=== PATIENT | female | born 1940 | race Caucasian/White ===

== ENCOUNTER → 2019-02-07 | Outpatient (CLI) | payer OTHER ==
[~2019-02-07] VITALS: Ht 167.6 cm; Wt 67.1 kg
[~2019-02-07] MED LIST: AMITIZA 24 MCG24 MCG PO; ASPIR 8181 MG PO; CENTRUM SILVER1 EAC4 PO; COMBIVENT INH; FLEXERIL PO; FLONASE 0.05%50 MCG NASAL; LIPITOR 10 MG10 M1 PO; PROTONIX40 M1 PO; TOPROL XL25 MG PO; TRAMADOL 50 MG50 MG PO; VITAMIN D-32000 UNIT PO
--- NOTE | 2019-02-08 17:06 | PATH ---
[facility] [place] [address] PATHOLOGY RPT PROCEDURE Name: NADEGE WHITTEN Room #: REG [facility] M..#: [id number] ������������������ Admission: 02/07/19 ������������������ Date of : 40 Discharge: Report #: [id number] Path Case #: [id number] [facility] Accession Number: [id number] . 01 Material submitted: . PART A: salivary gland - BX POLYP AT SPLENIC FLEXURE PART B: colon - BX POLYP AT MID ASCENDING COLON. Modifiers: mid, ascending PART C: hepatic flexure - BX POLYP AT HEPATIC FLEXURE PART D: colon - POLYP AT MID TRANSVERSE COLON. Modifiers: mid, transverse . 01 Clinical history: . Pre-OP DX: Hx polyps Post-OP DX: Colon polyps, diverticulosis, hemorrhoids . 02 Diagnosis: A. Colonic mucosa, "polyp at splenic flexure": - Tubular adenoma. - There is no evidence of high-grade dysplasia or malignancy. . B. Colonic mucosa, "polyp at mid ascending colon": - Tubular adenoma. - There is no evidence of high-grade dysplasia or malignancy. . C. Colonic mucosa, "biopsy polyp at hepatic flexure": - Fragments of tubular adenoma. - There is no evidence of high-grade dysplasia or malignancy. . D. Colonic mucosa, "polyp at mid transverse colon": - Fragments of tubular adenoma. - There is no evidence of high-grade dysplasia or malignancy. . (SHA:manuel; 02/08/2019) KINJAL/02/08/2019 . 02 Electronically signed: . Rj Arias MD, Pathologist NPI- [id number] . 01 Gross description: . A. Received in formalin labeled "ZariNadege, LI polyp at splenic flexure," is a single segment of maya soft tissue measuring 0.5 cm in maximum dimension. The specimen is entirely submitted in cassette A1. . B. Received in formalin labeled "Nadege Whitten, BX polyp at mid ascending colon," is a single segment of maya soft tissue measuring 0.6 cm in maximum dimension. The specimen is entirely submitted in cassette B1. . [address] [address] PATHOLOGY RPT PROCEDURE Name: ZARINADEGE Room #: REG [facility] Anast[facility]ya.#: [id number] ������������������ Admission: 02/07/19 ������������������ Date of : 40 Discharge: Report #: [id number] Path Case #: [id number] C. Received in formalin labeled "Nadege Whitten, BX polyp at hepatic flexure," are 2 segments of maya soft tissue measuring 0.7 x 0.3 x 0.3 cm in aggregate dimensions and ranging from 0.3 to 0.4 cm in maximum dimension. The specimen is submitted entirely in cassette C1. . D. Received in formalin labeled "Nadege Whitten, polyp at mid transverse colon," is a 1.1 x 0.3 x 0.3 cm polypoid piece of maya soft tissue. The margin is inked and the specimen is sectioned perpendicular to the margin and entirely submitted in cassette D1. (TSD; 02/07/2019) TOB/TOB . 02 Pathologist provided ICD-10: D12.2, D12.3 . 02 CPT . 447052, 914673, 239375, 464064 Specimen Comment: A courtesy copy of this report has been sent to Specimen Comment: [phone], . Specimen Comment: Report sent to / DR BOYD Performed at: [address], [place] [id number] MD Mick Weiss MD Phone: [phone] Performed at: [address] [id number] MD Mayra Brian MD Phone: [phone]
--- NOTE | 2019-02-18 11:46 | P ---
[facility] [place] [address] PROCEDURE REPORT Name: NADEGE HAMEED Room #: REG [facility]#: [id number] Admission: 02/07/19 ������������������ Attend Phys: Rosendo Pryor MD Discharge: ������������������ Date of : 40 Report #: [id number] THIS REPORT FOR: //name// CC: Nayana Pryor BRIEF HISTORY: The patient is a 78-year-old woman with history of at least 19 adenomas removed in the past. She has had genetic testing and it was found to be negative for any genetic markers. PREOPERATIVE DIAGNOSIS: History of multiple colon polyps. POSTOPERATIVE DIAGNOSES: 1. Multiple colon polyps. 2. Moderate sigmoid diverticulosis coli. 3. Internal hemorrhoids. MEDICATIONS: Deep sedation with propofol per anesthesia. SPECIMENS: 1. Polyp, splenic flexure. 2. Polyp, mid ascending colon. 3. Polyp, hepatic flexure. 4. Polyp, mid transverse colon. ESTIMATED BLOOD LOSS: 3 mL. PROCEDURE: Incomplete colonoscopy with snare polypectomy and biopsy. FINDINGS: Prior to propofol sedation, this procedure of colonoscopy discussed with the patient, all potential risks and its complications. She indicates she understands and desires to proceed. DESCRIPTION OF PROCEDURE: With the patient in left lateral decubitus position, digital examination was completed, which revealed no abnormalities. Subsequently, the [employer] video colonoscope was introduced in the rectum, advanced under direct vision to the proximal colon. The patient is noted to have a very tortuous redundant colon. Significant looping was encountered. The scope was advanced as far as possible, but we could not clearly reach the cecum. I believe we were able to advance the scope to the level of the proximal ascending colon just distal to the ileocecal valve. However, I could not enter the cecum and I could not visualize the appendiceal orifice from the mouth, the ileocecal valve. Again, multiple attempts were made to change in patient position and using stiffening wires, splint to the abdomen, but all were without benefit. At that point, the scope was slowly withdrawn and careful circumferential views obtained. At the mid ascending colon, a diminutive polyp was seen and removed [facility] [address] [place] [address] PROCEDURE REPORT Name: ZARINADEGE Room #: REG [facility].#: [id number] Admission: 02/07/19 ������������������ Attend Phys: Rosendo Pryor MD Discharge: ������������������ Date of : 40 Report #: [id number] with biopsy forceps. At the hepatic flexure, another diminutive polyp was seen and removed with biopsy forceps. In the mid transverse colon, a 5 x 5 mm sessile polyp was seen and removed by cold snare polypectomy. In addition, at the splenic flexure another diminutive polyp was seen and removed with biopsy forceps. It is noted the prep was good. Mucosa otherwise was within normal limits, normal vascular pattern and normal light reflex. Upon withdrawal of the scope, no additional abnormalities were seen until the sigmoid colon was reached at which point she was noted have moderately severe diverticular disease without endoscopic evidence of diverticulitis. The scope was withdrawn in the rectum. Upon retroflexion, internal hemorrhoids were seen. Scope was withdrawn. The patient tolerated the procedure well. CONDITION OF THE PATIENT UPON DISCHARGE: Following procedure, the patient drowsy, arousable and conversant and will be discharged home when fully ambulatory. INSTRUCTIONS TO THE PATIENT AND FAMILY AT THE TIME OF DISCHARGE: Unfortunately, the cecum was not reached today. We will follow up on path and make further recommendations to discuss further with the patient. In view of her history of multiple colon polyps, I would suggest she return for repeat attempt at colonoscopy in the next several months. She is to continue a high fiber diet. She will otherwise return to care of Dr. Nayana Perez. ��������������������������������������������� <ELECTRONICALLY SIGNED> ���������������������������������������� By: Rosendo Pryor MD ��������������������������������������������� 02/18/19 1146 1201 0115 Rosendo Pryor MD /nt
--- NOTE | 2019-02-18 11:46 | P ---
[facility] [place] [address] PROCEDURE REPORT Name: NADEGE HAMEED Room #: REG [facility].#: [id number] Admission: 02/07/19 ������������������ Attend Phys: Rosendo Pryor MD Discharge: ������������������ Date of : 40 Report #: [id number] THIS REPORT FOR: //name// CC: Nayana Pryor OUTPATIENT UPPER ENDOSCOPY REPORT BRIEF HISTORY: The patient is a 78-year-old woman with history of reflux disease, on pantoprazole, with continued symptoms of regurgitation occurring at least 3-4 times weekly. She also reports that she "burps fluids". PREOPERATIVE DIAGNOSIS: Worsening reflux symptoms. POSTOPERATIVE DIAGNOSES: 1. Small hiatus hernia. 2. Diffuse gastritis. MEDICATIONS: Deep sedation with propofol per Anesthesia. SPECIMEN: None. ESTIMATED BLOOD LOSS: None. PROCEDURE: EGD. FINDINGS: Prior to propofol sedation, the procedure of upper endoscopy was discussed with the patient as well as potential risks and its complications. She indicates she understands and desires to proceed. DESCRIPTION OF PROCEDURE: With the patient in the left lateral decubitus position, the Olympus video endoscope was inserted into the cervical esophagus under direct vision without any difficulty. Examination of this organ through its entire length revealed normal esophageal mucosa down to the squamocolumnar junction. The squamocolumnar junction was inspected and noted to be unremarkable. There is no evidence of ulcers or erosions. There is no evidence of Joel mucosa. No strictures or masses were seen. Intermittently, a 2-cm sliding-type hiatus hernia was seen. Scope was advanced in the stomach, which was examined on end views as well as retroflexed views. There was diffuse gastritis with erythema in the antrum. It was noted that previous biopsies for H. pylori were negative and those were not repeated. Upon retroflexion, no mass lesions were seen. The proximal stomach was unremarkable. The pylorus, duodenal bulb and postbulbar sweep were inspected and noted to be unremarkable. At that point, the scope was slowly withdrawn and careful circumferential views confirmed the above findings and the patient tolerated the procedure well. [facility] [address] [place] [address] PROCEDURE REPORT Name: NADEGE HAMEED Room #: REG [facility].#: [id number] Admission: 02/07/19 ������������������ Attend Phys: Rosendo Pryor MD Discharge: ������������������ Date of : 40 Report #: [id number] CONDITION OF THE PATIENT UPON DISCHARGE: Following the procedure, the patient drowsy and prepared for colonoscopy. INSTRUCTIONS TO THE PATIENT AND FAMILY AT THE TIME OF DISCHARGE: I do not see evidence of significant esophageal disease. She has a small hiatus hernia. She clearly describes episodes of regurgitation. We will have her increase her pantoprazole to 40 mg twice daily. Also, she may use ranitidine 150 mg as needed for breakthrough episodes. If symptoms persist, she should return to see me in followup in the office. An antireflux procedure may be indicated if she does not have good control of her symptoms. ��������������������������������������������� <ELECTRONICALLY SIGNED> ���������������������������������������� By: Rosendo Pryor MD ��������������������������������������������� 02/18/19 1146 1103 0038 Rosendo Pryor MD /nt
== END | disposition home or self-care (01) ==
LOC: GI 08:27
DX: Z12.11 Encounter for screening for malignant neoplasm of colon (principal); Z86.010 Personal history of colon polyps; D12.3 Benign neoplasm of transverse colon; D12.2 Benign neoplasm of ascending colon; K63.89 Other specified diseases of intestine; K29.70 Gastritis, unspecified, without bleeding; K57.30 Diverticulosis of large intestine without perforation or abscess without bleeding; K64.8 Other hemorrhoids; K44.9 Diaphragmatic hernia without obstruction or gangrene; I10 Essential (primary) hypertension; J45.909 Unspecified asthma, uncomplicated; K21.9 Gastro-esophageal reflux disease without esophagitis; Z90.49 Acquired absence of other specified parts of digestive tract; Z96.651 Presence of right artificial knee joint; Z85.828 Personal history of other malignant neoplasm of skin; Z98.890 Other specified postprocedural states; Z90.710 Acquired absence of both cervix and uterus; Z79.899 Other long term (current) drug therapy; Z88.0 Allergy status to penicillin; Z91.041 Radiographic dye allergy status; Z79.82 Long term (current) use of aspirin
CPT/HCPCS: 62110; 62900

== ENCOUNTER → 2019-08-01 | Outpatient (CLI) | payer OTHER ==
[~2019-08-01] VITALS: Ht 167.6 cm; Wt 72.6 kg
[~2019-08-01] MED LIST changes: +LINZESS290 MCG PO; +VITAMIN B-12500 MCG PO; +ZANTAC 150MG T150 MG PO
--- NOTE | 2019-08-02 10:55 | P ---
[facility] [place] [address] PROCEDURE REPORT Name: NADEGE HAMEED Room #: REG [facility]#: [id number] Admission: 08/01/19 Attend Phys: Rosendo Pryor MD Discharge: Date of : 40 Report #: [id number] THIS REPORT FOR: //name// CC: Nayana Pryor OUTPATIENT UPPER ENDOSCOPY REPORT BRIEF HISTORY: The patient is a 78-year-old woman with history of reflux disease. She reports she is having increased symptoms in spite of pantoprazole 40 mg daily and ranitidine at bedtime. She does not have any dysphagia. It is noted that several years ago. She did have an abnormal gastric emptying study with the half time of 208 minutes. PREOPERATIVE DIAGNOSIS: Worsening reflux symptoms in the face of PPI therapy. POSTOPERATIVE DIAGNOSES: 1. Grade A esophagitis. 2. Small hiatus hernia. 3. Mild gastritis. MEDICATIONS: Deep sedation with propofol per Anesthesia. SPECIMEN: None. ESTIMATED BLOOD LOSS: None. PROCEDURE: EGD. FINDINGS: Prior to propofol sedation, procedure of upper endoscopy discussed and reviewed with the patient as well as potential risks and its complications. She indicates she understands and desires to proceed. DESCRIPTION OF PROCEDURE: With the patient in left lateral decubitus position, the Olympus video endoscope was inserted in the cervical esophagus under direct vision without difficulty. Examination of this organ through its entire length revealed normal esophageal mucosa down to the squamocolumnar junction. The squamocolumnar junction was inspected, initially felt to be unremarkable; however, on closer inspection, a single small erosion was seen just above the squamocolumnar junction consistent with a grade A esophagitis. No strictures or masses were seen. There was no evidence of Joel mucosa. Intermittently, a 2-cm or less sliding type hiatus hernia was seen. Scope was advanced in the stomach, was examined on end view as well as retroflexed views. She had erythema of the antrum of the stomach. No ulcers were seen. Upon retroflexion, the mucosa of the proximal stomach was normal. No mass lesions were seen. There was no endoscopic evidence of gastroparesis and there were no retained [address] [address] [place] [address] PROCEDURE REPORT Name: ZARINADEGE CHAE Room #: REG [facility].#: [id number] Admission: 08/01/19 Attend Phys: Rosendo Pryor MD Discharge: Date of : 40 Report #: [id number] solids or liquids within the stomach. Pylorus was normal. There was no evidence of obstruction or stricture seen. Duodenal bulb and duodenal sweep down to the third portion was unremarkable. At that point, the scope was slowly withdrawn and careful circumferential views confirmed the above findings. The patient tolerated the procedure well. CONDITION OF THE PATIENT UPON DISCHARGE: Following the procedure, she was prepared for colonoscopy. INSTRUCTIONS TO THE PATIENT AND FAMILY AT THE TIME OF DISCHARGE: We will have her increase her pantoprazole to 40 mg twice daily. We will have her switch her PPI to famotidine 40 mg at bedtime. Return to see me in followup in the office. Another option, would be to treat for gastroparesis and whether or not to repeat her gastric emptying study. Antireflux surgery would be consideration if symptoms persist. We will discuss further in the office. <ELECTRONICALLY SIGNED> By: Rosendo Pryor MD 08/02/19 1055 1056 2336 Rosendo Pryor MD /nt
--- NOTE | 2019-08-02 10:55 | P ---
[facility] [place] [address] PROCEDURE REPORT Name: NADEGE HAMEED Room #: REG [facility]#: [id number] Admission: 08/01/19 Attend Phys: Rosendo Pryor MD Discharge: Date of : 40 Report #: [id number] THIS REPORT FOR: //name// CC: Nayana Pryor DATE OF SERVICE: 08/01/2019 OUTPATIENT COLONOSCOPY REPORT BRIEF HISTORY: The patient is a 78-year-old woman who has a history of multiple colon adenomas. She has a lifetime count of 23. Genetic studies in the past were negative. She presented for colonoscopy earlier this year and we were unable to reach the cecum, and thus it was an incomplete colonoscopy. She presents now for a colonoscopy to evaluate the proximal colon. PREOPERATIVE DIAGNOSIS: High-risk screening colonoscopy due to high adenoma count. POSTOPERATIVE DIAGNOSES: 1. Colon polyps x 2. 2. Moderate sigmoid diverticulosis coli. 3. Mildly tortuous redundant colon. MEDICATIONS: Deep sedation with propofol per Anesthesia. SPECIMENS: 1. Distal transverse colon polyp. 2. Proximal transverse colon polyp. ESTIMATED BLOOD LOSS: 3 mL. PROCEDURE: Colonoscopy to cecum and terminal ileum with biopsy. FINDINGS: Prior to propofol sedation, procedure of colonoscopy discussed with the patient as well as potential risks and its complications. She indicates she understands and desires to proceed. DESCRIPTION OF PROCEDURE: With the patient in left lateral decubitus position, digital examination was completed, which revealed no abnormalities. Subsequently, the [employer] video colonoscope was introduced in the rectum and advanced under direct vision to the cecum. This was done with considerable difficulty as she has a very dilated tortuous redundant colon. We engaged the stiffening guidewire and the scope as well as splinting of the abdomen in multiple positions and also added a stiffening wire into the biopsy channel. [facility] [address] [place] [address] PROCEDURE REPORT Name: [facility] [id number] Admission: 08/01/19 Attend Phys: Rosendo Pryor MD Discharge: Date of : 40 Report #: [id number] With these maneuvers with difficulty, we were finally able to reach the cecum, which was identified by the appendiceal orifice. I could see the ileocecal valve and saw a villous pattern. However, due to looping the scope, we could not intubate the ileocecal valve and advance the tip of the scope into the distal ileum. From the cecum, the scope was slowly withdrawn and careful circumferential views obtained. For the most part, the prep was good. There were a couple areas where there was some stool material that could not be aspirated away. Within these minor limitations, the prep was good. The mucosa was within normal limits, normal vascular pattern, normal light reflex. Again, she had a very dilated and tortuous colon. In the proximal transverse colon, a diminutive polyp was seen and removed with biopsy forceps. Scope was further withdrawn and no additional polyps were seen. There was noted to be moderate sigmoid diverticular disease without endoscopic evidence of diverticulitis. Scope was withdrawn in the rectum, no abnormalities were seen. Upon retroflexion, no abnormalities were seen. Scope was withdrawn. The patient tolerated the procedure well. CONDITION OF THE PATIENT UPON DISCHARGE: Following procedure, the patient was drowsy. She will be discharged home when fully ambulatory. INSTRUCTIONS TO THE PATIENT AND FAMILY AT THE TIME OF DISCHARGE: She has a lifetime adenoma count prior to this procedure of 23. We will follow up on path. However, at this point, I suggest return in 2 years for high-risk screening colonoscopy as long as her health is good at that time. Constipation is a major issue for this patient. This was again discussed with her today. I have suggested she use Linzess and also she has other product such as MiraLax, fiber, prunes, and milk of magnesia as well. If she continues to have difficulties with constipation, return to the office for followup. Last colonoscopy done earlier this year, but was an incomplete study. Withdrawal time from the cecum was 18 minutes 54 seconds. <ELECTRONICALLY SIGNED> By: Rosendo Pryor MD 08/02/19 1055 1149 0048 Rosendo Pryor MD /nt
--- NOTE | 2019-08-05 13:46 | PATH ---
[facility] [place] [address] PATHOLOGY RPT PROCEDURE Name: ZARINADEGEValentine CHAE Room #: REG [facility].#: [id number] Admission: 08/01/19 Date of : 40 Discharge: Report #: [id number] Path Case #: [id number] [facility] Accession Number: [id number] . 01 Material submitted: . PART A: colon - DISTAL TRANSVERSE COLON POLYP. Modifiers: distal, transverse PART B: colon - PROXIMAL TRANSVERSE COLON POLYP. Modifiers: transverse, proximal . 01 Clinical history: . History of polyps . 02 Diagnosis: A. "Distal transverse colon polyp", biopsy: - Tubular adenoma; no high-grade dysplasia. . B. "Proximal transverse colon polyp", biopsy: - Tubular adenoma; no high-grade dysplasia. (CLW:lois; 08/02/2019) P 08/02/2019 1144 Local . 02 Electronically signed: . Jody Holguin MD, Pathologist NPI- [id number] . 01 Gross description: . A. The specimen is received in formalin, labeled "Zari, Nadege, distal transverse colon polyp", is an irregular segment of maya soft tissue measuring 0.6 cm in greatest dimension. Entirely submitted in A1. . B. The specimen is received in formalin, labeled "Zari, Nadege, proximal tonsils colon polyp", are two irregular segments of maya soft tissue measuring 0.2 cm and 0.5 cm in greatest dimension. Entirely submitted in B1. ([facility]; 08/01/2019) [facility] 08/01/2019 1716 Local . 02 Pathologist provided ICD-10: D12.3 . 02 CPT . 728598, 427542 Specimen Comment: A courtesy copy of this report has been sent to Specimen Comment: [phone], . Specimen Comment: Report sent to / DR BOYD Performed at: 01 [place] [address] PATHOLOGY RPT PROCEDURE Name: NADEGE HAMEED Room #: REG [facility] Fransisca#: [id number] Admission: 08/01/19 Date of : 40 Discharge: Report #: [id number] Path Case #: [id number] [facility], [place], [place] [id number] MD Mick Weiss MD Phone: [phone] Performed at: [address] [id number] MD Mayra Brian MD Phone: [phone]
== END | disposition home or self-care (01) ==
LOC: GI 09:12
DX: Z12.11 Encounter for screening for malignant neoplasm of colon (principal); Z86.010 Personal history of colon polyps; D12.3 Benign neoplasm of transverse colon; K57.30 Diverticulosis of large intestine without perforation or abscess without bleeding; K63.89 Other specified diseases of intestine; K29.70 Gastritis, unspecified, without bleeding; K21.0 Gastro-esophageal reflux disease with esophagitis; K44.9 Diaphragmatic hernia without obstruction or gangrene; I10 Essential (primary) hypertension; K21.9 Gastro-esophageal reflux disease without esophagitis; E78.5 Hyperlipidemia, unspecified; J45.909 Unspecified asthma, uncomplicated; Z85.828 Personal history of other malignant neoplasm of skin; Z96.651 Presence of right artificial knee joint; Z90.49 Acquired absence of other specified parts of digestive tract; Z90.710 Acquired absence of both cervix and uterus; Z98.890 Other specified postprocedural states; Z79.899 Other long term (current) drug therapy; Z88.0 Allergy status to penicillin; Z91.041 Radiographic dye allergy status; Z79.82 Long term (current) use of aspirin
CPT/HCPCS: 62110; 62900

== ENCOUNTER 2021-04-07 12:59 | Emergency (ER) | payer OTHER ==
[~2021-04-07] VITALS: Ht 165.1 cm; Wt 72.6 kg
[2021-04-07 13:55] LABS: URINE BILIRUBIN NEGATIVE (Negative); URINE BLOOD NEGATIVE (Negative); URINE CLARITY CLEAR; URINE COLOR YELLOW; URINE GLUCOSE-RANDOM* NEGATIVE (Negative); URINE KETONES NEGATIVE (Negative); URINE LEUKOCYTES-REFLEX NEGATIVE (Negative); URINE NITRITE-REFLEX NEGATIVE (Negative); URINE PROTEIN (DIPSTICK) NEGATIVE (Negative); URINE SPECIFIC GRAVITY >= 1.030 (1.005-1.035); URINE UROBILINOGEN 0.2 E.U./dl (0.2-1.0)
[2021-04-07 14:38] LABS: ABSOLUTE NEUTROPHILS 3.6 thou/uL (1.4-8.2); EOSINOPHILS 1.9 % (0.0-3.0); HEMATOCRIT 40.3 % (37.0-47.0); HEMOGLOBIN 13.4 gm/dL (12.0-15.0); LYMPHOCYTES 25.6 % (24.0-44.0); MCHC 33.3 g/dL (28.0-37.0); MONOCYTES 11.9 % (1.0-8.0); PLATELET COUNT 215 thou/uL (150-400); POLYS 59.6 % (36.0-66.0); RDW 13.4 % (10.5-14.5)
[2021-04-07] MEDS ORDERED: COLACE100 MG PO (15:20)
[2021-04-07 16:04] LABS: ANION GAP 7 mmol/L (7-16); BUN 8 mg/dL (7-18); CALCIUM 8.8 mg/dL (8.5-10.1); CHLORIDE 108 mmol/L (98-107); CO2 26 mmol/L (21-32); CREATININE 0.6 mg/dL (0.6-1.0); GLUCOSE 90 mg/dL (74-106); SODIUM 141 mmol/L (136-145)
[2021-04-07 16:06] VITALS: BP 145/60
[2021-04-07 16:07] LABS: ALBUMIN 3.2 g/dL (3.4-5.0); DIRECT BILIRUBIN < 0.1 mg/dL (<0.1-0.2); LIPASE 80 U/L (73-393); SGOT 40 U/L (15-37); SGPT 19 U/L (30-65); TOTAL BILIRUBIN 0.6 mg/dL (0.2-1.0); TOTAL PROTEIN 6.6 g/dL (6.4-8.2)
[2021-04-07 16:09] LABS: POTASSIUM 5.5 mmol/L (3.5-5.1)
== END 2021-04-07 16:08 | disposition home or self-care (01) ==
LOC: ER 12:59
PROVIDERS: Nurse Practitioner
DX: R10.31 Right lower quadrant pain (principal); R10.32 Left lower quadrant pain; K21.9 Gastro-esophageal reflux disease without esophagitis; J45.909 Unspecified asthma, uncomplicated; E78.5 Hyperlipidemia, unspecified; Z91.041 Radiographic dye allergy status; Z88.0 Allergy status to penicillin; Z79.82 Long term (current) use of aspirin; Z79.899 Other long term (current) drug therapy; Z90.710 Acquired absence of both cervix and uterus